=== PATIENT | male | born 1980 | race Caucasian/White ===

== ENCOUNTER 2017-06-16 16:28 | Observation (INO) | payer MEDICARE, OTHER ==
[~2017-06-16] VITALS: Ht 188 cm; Wt 78.4 kg
[~2017-06-16 16:28] MED LIST: ALBU1.25 NEB; ALBU18HF INH; ALBU6.7H IH; AMIT25TA PO; BUSP15TA PO; CALC260T6 PO; CHOL2000 PO; DEXA1TAB5 PO; FLUT1DIS5 IH; FOLI20CA PO; FURO-92 PO; GABA300C10 PO; HYDR200T PO; HYDR25TA6 PO; HYDR4TAB48 PO; LORA2TAB PO; METH2.5T PO; OMEP-110 PO; OXYC10TA6 PO; OXYC80TA25 PO; POTA20TA6 PO; RISE35TA3 PO; SPIR25TA3 PO; SULF1TAB24 PO; TIOT18CA INH; TRAZ100T15 PO; VITA0.4T6 PO
[2017-06-16] MEDS ORDERED: SODIUM CHLORIDE 0.9% 1,000 ML IV ONE (16:45)
[2017-06-16] MEDS ORDERED: SODIUM CHLORIDE 0.9% 1,000ML IVBOLUS ONE ×2 (17:00→18:30)
[2017-06-16] MEDS ORDERED: ONDANSETRON 2MG/ML, 2ML IVPush ONE (17:00)
[2017-06-16] MEDS ORDERED: SODIUM CHLORIDE FLUSH 10ML SYR IVF ONE (17:00)
[2017-06-16] MEDS ORDERED: ONDANSETRON 2MG/ML, 2ML ONE (17:07)
[2017-06-16] MEDS ORDERED: HYDROmorphone 2 MG/ML, 1ML ONE ×2 (17:07→19:11)
[2017-06-16] MEDS: HYDROmorphone 1 MG/ML, 1ML IVPush PRN ×2 (17:16→19:24)
[2017-06-16 17:27] LABS: BASOPHILS # (AUTO) 0.03 x10^3/uL (0-0.1); BASOPHILS % (AUTO) 0 % (0-1); EOSINOPHILS # (AUTO) 0.44 x10^3/uL (0-0.4); EOSINOPHILS % (AUTO) 5 % (1-7); LYMPHOCYTES # (AUTO) 1.51 x10^3/uL (1-3.4); LYMPHOCYTES % (AUTO) 17 % (22-44); MD NO; MEAN CORPUSCULAR HEMOGLOBIN 28.9 pg (27.5-34.5); MEAN CORPUSCULAR HGB CONC 32.8 g/dL (33.2-36.2); MEAN PLATELET VOLUME 7.7 fL (7.4-10.4); MONOCYTES % (AUTO) 10 % (2-9); NEUTROPHILS # (AUTO) 6.25 x10^3/uL (1.8-6.8); NEUTROPHILS % (AUTO) 68 % (42-75); PLATELET COUNT 450 x10^3/uL (130-400); RED BLOOD COUNT 4.84 x10^6/uL (4.38-5.82); RED CELL DISTRIBUTION WIDTH 13.3 % (9.4-14.8)
[2017-06-16 17:32] LABS: ALANINE AMINOTRANSFERASE 16 U/L (12-78); ALBUMIN 3.1 g/dL (3.4-5.0); ANION GAP 12 mmol/L (5-15); CALCIUM 12.1 mg/dL (8.5-10.1); CHLORIDE 98 mmol/L (98-107); CREATININE 0.95 mg/dL (0.7-1.3)
[2017-06-16 17:34] LABS: ALKALINE PHOSPHATASE 76 U/L (45-117); BILIRUBIN,TOTAL 0.3 mg/dL (0.2-1.0); TOTAL PROTEIN 7.3 g/dL (6.4-8.2)
[2017-06-16 17:40] LABS: INTERNATIONAL NORMALIZED RATIO 1.19 (0.93-1.1); PROTHROMBIN TIME 12.2 Seconds (9.6-11.5)
[2017-06-16] MEDS ORDERED: VANCOMYCIN PER PHARMACY MC PRN ×2 (18:00→20:30)
[2017-06-16] MEDS ORDERED: PIPERACILLIN/TAZO/PMX 3.375GM 50 ML IV ONE (18:00)
[2017-06-16] MEDS ORDERED: ALBUTEROL/IPRATROPIUM 2.5MG/0.5MG, 3 ML NPPB ONE (18:00)
[2017-06-16] MEDS ORDERED: ALBUTEROL/IPRATROPIUM 2.5MG/0.5MG, 3 ML ONE (18:06)
[2017-06-16] MEDS ORDERED: OMNIPAQUE 350 MG/ML, 100ML BOTTLE ONE (18:13)
[2017-06-16] MEDS ORDERED: VANCOMYCIN 1,600 MG in SODIUM CHLORIDE 0.9% 250 ML IV ONE (18:30)
[2017-06-16] MEDS ORDERED: PHARMACOKINETIC CONSULTATION MC ONE ×2 (18:30→21:00)
[2017-06-16] MEDS ORDERED: PIPERACILLIN/TAZO/PMX 3.375GM 50 ML ONE (18:44)
[2017-06-16] MEDS ORDERED: DULO20CA45 PO (19:02)
[2017-06-16] MEDS ORDERED: LORA1TAB PO (19:02)
[2017-06-16] MEDS ORDERED: MAGN400T7 PO (19:02)
[2017-06-16] MEDS ORDERED: BUDE0.5A INH (19:02)
[2017-06-16] MEDS ORDERED: CETI10TA32 PO (19:02)
[2017-06-16] MEDS ORDERED: OXYCODONE CR PO (19:02)
[2017-06-16] MEDS ORDERED: ASCO500T7 PO (19:02)
[2017-06-16] MEDS ORDERED: IBUP-1221 PO (19:02)
[2017-06-16] MEDS ORDERED: LIDODERM (19:02)
[2017-06-16] MEDS ORDERED: FERR324T8 PO (19:02)
[2017-06-16] MEDS ORDERED: POLY17PO5 PO (19:02)
[2017-06-16] MEDS ORDERED: OXYC20TA2 PO (19:02)
[2017-06-16] MEDS ORDERED: ACET325S PO (19:02)
[2017-06-16] MEDS ORDERED: DOCU-131 PO (19:02)
[2017-06-16 20:06] LABS: MICROSCOPIC NOT IND
[2017-06-16 20:09] LABS: CULTURE INDICATED? NO
[2017-06-16 20:19] VITALS: BP 110/77
[2017-06-16] MEDS ORDERED: ENALAPRILAT 1.25 MG/ML, 2ML IVPush PRN (20:30)
[2017-06-16] MEDS: ENOXAPARIN 40 MG/0.4 ML SQ SCH (21:00)
[2017-06-16] MEDS ORDERED: PHARMACOKINETIC MONITORING MC PRN (21:00)
[2017-06-16] MEDS: OXYcodone IR 5MG TABLET PO PRN (21:49)
[2017-06-16] MEDS: OxyconTIN ER 20 MG TAB.ER PO SCH (21:49)
[2017-06-17] MEDS: PIPERACILLIN/TAZO/PMX 3.375GM 50 ML IV SCH ×3 (01:00→13:14)
[2017-06-17] MEDS: OXYcodone IR 5MG TABLET PO PRN ×5 (03:10→22:37)
[2017-06-17 03:32] LABS: ANION GAP 9 mmol/L (5-15); CHLORIDE 101 mmol/L (98-107); CREATININE 0.69 mg/dL (0.7-1.3)
[2017-06-17 03:36] LABS: BASOPHILS # (AUTO) 0.02 x10^3/uL (0-0.1); BASOPHILS % (AUTO) 0 % (0-1); EOSINOPHILS # (AUTO) 0.52 x10^3/uL (0-0.4); EOSINOPHILS % (AUTO) 7 % (1-7); LYMPHOCYTES # (AUTO) 1.24 x10^3/uL (1-3.4); LYMPHOCYTES % (AUTO) 17 % (22-44); MD NO; MEAN CORPUSCULAR VOLUME 87.9 fL (81-97); MEAN PLATELET VOLUME 7.6 fL (7.4-10.4); MONOCYTES % (AUTO) 11 % (2-9); NEUTROPHILS # (AUTO) 4.76 x10^3/uL (1.8-6.8); NEUTROPHILS % (AUTO) 65 % (42-75); PLATELET COUNT 387 x10^3/uL (130-400); RED CELL DISTRIBUTION WIDTH 13.7 % (9.4-14.8)
[2017-06-17 04:00] VITALS: BP 96/68
[2017-06-17] MEDS: ONDANSETRON ODT 4 MG PO PRN ×2 (04:03→17:58)
[2017-06-17] MEDS ORDERED: VANCOMYCIN 1,600 MG in SODIUM CHLORIDE 0.9% 250 ML IV SCH (06:30)
[2017-06-17 07:45] VITALS: BP 124/77
[2017-06-17] MEDS: MAGNESIUM OXIDE 400 MG TABLET PO SCH (07:57)
[2017-06-17] MEDS: OxyconTIN ER 20 MG TAB.ER PO SCH ×2 (07:57→20:58)
[2017-06-17] MEDS: LORazepam 1MG TABLET PO SCH (07:57)
[2017-06-17] MEDS: ASCORBIC ACID 500 MG TABLET PO SCH (07:57)
[2017-06-17] MEDS: FERROUS GLUCONATE 324 MG TABLET PO SCH (07:58)
[2017-06-17] MEDS: DULOXETINE 20 MG CAPSULE.DR PO SCH (07:58)
[2017-06-17] MEDS: CETIRIZINE 10 MG TABLET PO SCH (07:58)
[2017-06-17] MEDS ORDERED: IBUPROFEN 200 MG TABLET PO SCH (09:00)
[2017-06-17] MEDS: BUDESONIDE 0.5 MG/2 ML INHA INH SCH (09:00)
[2017-06-17] MEDS: POTASSIUM CHLORIDE 20 MEQ TAB.ER.PRT PO SCH ×2 (10:09→16:49)
[2017-06-17 13:51] VITALS: BP 125/87
[2017-06-17] MEDS ORDERED: MAGNESIUM SULFATE PMX 2GM/50ML 50 ML IV ONE (14:30)
[2017-06-17 19:17] VITALS: BP 125/85
[2017-06-17] MEDS: ENOXAPARIN 40 MG/0.4 ML SQ SCH (20:55)
[2017-06-17] MEDS: IBUPROFEN 200 MG TABLET PO PRN (22:45)
[2017-06-18 03:18] LABS: BASOPHILS # (AUTO) 0.02 x10^3/uL (0-0.1); BASOPHILS % (AUTO) 0 % (0-1); EOSINOPHILS # (AUTO) 0.56 x10^3/uL (0-0.4); EOSINOPHILS % (AUTO) 9 % (1-7); LYMPHOCYTES # (AUTO) 1.13 x10^3/uL (1-3.4); LYMPHOCYTES % (AUTO) 19 % (22-44); MD NO; MEAN CORPUSCULAR HEMOGLOBIN 28.8 pg (27.5-34.5); MEAN CORPUSCULAR HGB CONC 32.7 g/dL (33.2-36.2); MEAN CORPUSCULAR VOLUME 87.9 fL (81-97); MEAN PLATELET VOLUME 7.7 fL (7.4-10.4); MONOCYTES # (AUTO) 0.52 x10^3/uL (0.2-0.8); MONOCYTES % (AUTO) 9 % (2-9); NEUTROPHILS # (AUTO) 3.84 x10^3/uL (1.8-6.8); NEUTROPHILS % (AUTO) 63 % (42-75); PLATELET COUNT 354 x10^3/uL (130-400); RED BLOOD COUNT 3.76 x10^6/uL (4.38-5.82); RED CELL DISTRIBUTION WIDTH 13.6 % (9.4-14.8)
[2017-06-18 03:24] LABS: ALANINE AMINOTRANSFERASE 12 U/L (12-78); ALBUMIN 2.5 g/dL (3.4-5.0); ANION GAP 7 mmol/L (5-15); CALCIUM 11.4 mg/dL (8.5-10.1); CHLORIDE 100 mmol/L (98-107); CREATININE 0.74 mg/dL (0.7-1.3)
[2017-06-18 03:26] LABS: ALKALINE PHOSPHATASE 57 U/L (45-117); BILIRUBIN,TOTAL 0.2 mg/dL (0.2-1.0); TOTAL PROTEIN 6.1 g/dL (6.4-8.2)
[2017-06-18 03:55] VITALS: BP 119/77
[2017-06-18] MEDS: OXYcodone IR 5MG TABLET PO PRN ×5 (04:15→22:09)
[2017-06-18 07:03] VITALS: BP 110/65
[2017-06-18] MEDS: OxyconTIN ER 20 MG TAB.ER PO SCH ×2 (08:01→20:33)
[2017-06-18] MEDS: MAGNESIUM OXIDE 400 MG TABLET PO SCH (08:01)
[2017-06-18] MEDS: ASCORBIC ACID 500 MG TABLET PO SCH (08:01)
[2017-06-18] MEDS: CETIRIZINE 10 MG TABLET PO SCH (08:02)
[2017-06-18] MEDS: FERROUS GLUCONATE 324 MG TABLET PO SCH (08:02)
[2017-06-18] MEDS: DULOXETINE 20 MG CAPSULE.DR PO SCH (08:02)
[2017-06-18] MEDS ORDERED: POTASSIUM CHLORIDE 20 MEQ TAB.ER.PRT PO ONE (08:30)
[2017-06-18] MEDS: BUDESONIDE 0.5 MG/2 ML INHA INH SCH (09:00)
[2017-06-18] MEDS: ACETAMINOPHEN 325 MG TABLET PO PRN ×2 (09:34→18:28)
[2017-06-18] MEDS: ONDANSETRON ODT 4 MG PO PRN ×2 (10:31→16:16)
[2017-06-18] MEDS ORDERED: BISACODYL 10 MG SUPP PR PRN (11:00)
[2017-06-18] MEDS: SENNA/DOCUSATE TABLET PO SCH (11:45)
[2017-06-18] MEDS: LIDODERM 5% PATCH TD SCH (11:48)
[2017-06-18 12:45] VITALS: BP 125/81
[2017-06-18] MEDS: IBUPROFEN 200 MG TABLET PO PRN (13:51)
[2017-06-18 19:36] VITALS: BP 123/80
[2017-06-18] MEDS: LORazepam 1MG TABLET PO SCH (20:33)
[2017-06-18] MEDS: ENOXAPARIN 40 MG/0.4 ML SQ SCH (20:34)
[2017-06-19] MEDS: ACETAMINOPHEN 325 MG TABLET PO PRN ×2 (02:05→16:52)
[2017-06-19 02:10] VITALS: BP 122/83
[2017-06-19 05:04] LABS: ANION GAP 3 mmol/L (5-15); CALCIUM 11.4 mg/dL (8.5-10.1); CHLORIDE 98 mmol/L (98-107); CREATININE 0.62 mg/dL (0.7-1.3)
[2017-06-19 05:05] LABS: BASOPHILS # (AUTO) 0.02 x10^3/uL (0-0.1); BASOPHILS % (AUTO) 0 % (0-1); EOSINOPHILS % (AUTO) 12 % (1-7); LYMPHOCYTES # (AUTO) 1.18 x10^3/uL (1-3.4); LYMPHOCYTES % (AUTO) 20 % (22-44); MD NO; MEAN CORPUSCULAR HEMOGLOBIN 28.6 pg (27.5-34.5); MEAN CORPUSCULAR HGB CONC 32.7 g/dL (33.2-36.2); MEAN CORPUSCULAR VOLUME 87.4 fL (81-97); MEAN PLATELET VOLUME 7.7 fL (7.4-10.4); MONOCYTES # (AUTO) 0.53 x10^3/uL (0.2-0.8); MONOCYTES % (AUTO) 9 % (2-9); NEUTROPHILS # (AUTO) 3.37 x10^3/uL (1.8-6.8); NEUTROPHILS % (AUTO) 58 % (42-75); PLATELET COUNT 349 x10^3/uL (130-400); RED BLOOD COUNT 3.77 x10^6/uL (4.38-5.82); RED CELL DISTRIBUTION WIDTH 13.6 % (9.4-14.8)
[2017-06-19] MEDS ORDERED: POTASSIUM CHLORIDE 40 MEQ in SODIUM CHLORIDE 0.9% 500 ML IV ONE (07:00)
[2017-06-19 07:02] VITALS: BP 138/88
[2017-06-19] MEDS: OXYcodone IR 5MG TABLET PO PRN ×3 (07:14→16:52)
[2017-06-19] MEDS: FERROUS GLUCONATE 324 MG TABLET PO SCH (08:12)
[2017-06-19] MEDS: DULOXETINE 20 MG CAPSULE.DR PO SCH (08:12)
[2017-06-19] MEDS: LORazepam 1MG TABLET PO SCH (08:12)
[2017-06-19] MEDS: MAGNESIUM OXIDE 400 MG TABLET PO SCH (08:12)
[2017-06-19] MEDS: ASCORBIC ACID 500 MG TABLET PO SCH (08:12)
[2017-06-19] MEDS: OxyconTIN ER 20 MG TAB.ER PO SCH (08:13)
[2017-06-19] MEDS: SENNA/DOCUSATE TABLET PO SCH (08:13)
[2017-06-19] MEDS: CETIRIZINE 10 MG TABLET PO SCH (08:13)
[2017-06-19] MEDS: BUDESONIDE 0.5 MG/2 ML INHA INH SCH (09:00)
[2017-06-19] MEDS: LIDODERM 5% PATCH TD SCH (11:35)
[2017-06-19] MEDS ORDERED: SENN1TAB7 PO (12:10)
[2017-06-19] MEDS ORDERED: IBUP-1484 PO (12:10)
[2017-06-19 13:21] VITALS: BP 118/82
[2017-06-19] MEDS: IBUPROFEN 200 MG TABLET PO PRN (13:29)
== END 2017-06-19 17:44 | disposition home or self-care (01) ==
LOC: ED 18:19 → EDIP 18:24 → INTOOBSV 18:24 → ED 18:56 → 3NW 20:10
PROVIDERS: ADMIT Hospitalist; ATTEND Hospitalist
DX: J15.9 Unspecified bacterial pneumonia (principal); J96.10 Chronic respiratory failure, unspecified whether with hypoxia or hypercapnia; F11.20 Opioid dependence, uncomplicated; J44.9 Chronic obstructive pulmonary disease, unspecified; D86.0 Sarcoidosis of lung; G89.4 Chronic pain syndrome; N28.89 Other specified disorders of kidney and ureter; F33.9 Major depressive disorder, recurrent, unspecified; Z87.01 Personal history of pneumonia (recurrent)
CPT/HCPCS: 36415; 71045; 74177; 80048; 80053; 81003; 82330; 83605; 83690; 83735; 84100; 84145; 85025; 85610; 85730; 87040; 93005; 94640; 96361; 96365; 96366; 96367; 96368; 96375; 96376; 97162; 97166; 99285; G0378; G8978; G8979; G8980; J1170; J2405; J2543; J3370; J3475; J3480; J7030; J7040; J7050; Q0162; Q9967; J7620